=== PATIENT | female | born 1990 | race Caucasian/White ===

== ENCOUNTER 2019-10-12 21:24 | Emergency (ER) | payer SELFPAY ==
[~2019-10-12] VITALS: Ht 157.5 cm; Wt 68.0 kg
[~2019-10-12 21:24] MED LIST: BIOTIN5 M1 PO; FISH OIL500 M1 PO
== END 2019-10-13 00:54 | disposition home or self-care (01) ==
LOC: ED 21:24
DX: S10.93XA Contusion of unspecified part of neck, initial encounter (principal); H11.32 Conjunctival hemorrhage, left eye; F17.200 Nicotine dependence, unspecified, uncomplicated; Y04.2XXA Assault by strike against or bumped into by another person, initial encounter
CPT/HCPCS: 99283

== ENCOUNTER 2019-12-16 09:55 | Emergency (ER) | payer OTHER ==
[~2019-12-16] VITALS: Ht 157.5 cm; Wt 68.0 kg
[2019-12-16] MEDS ORDERED: ONDANSETRON ODT4 MG PO (10:21)
== END 2019-12-16 10:40 | disposition home or self-care (01) ==
LOC: ED 09:55
DX: J40 Bronchitis, not specified as acute or chronic (principal); B34.9 Viral infection, unspecified; F17.200 Nicotine dependence, unspecified, uncomplicated
CPT/HCPCS: 99283; U0002